=== PATIENT | male | born 1990 | race American Indian/Alaskan Native ===

== ENCOUNTER 2020-02-17 20:27 | Emergency (ER) | payer SELFPAY ==
--- NOTE | 2020-02-17 20:39 | Emergency Department Report ---
Stated Complaint: DISCHARGE Time Seen by Provider: 02/17/20 20:37 - HPI History of Present Illness: PENILE DC HAS SEX WITH MEN AND WOMEN NO TESTICULAR PAIN - ROS Review of Systems: PENILE DC - Exam Physical Exam: AO S1S2 LUNGS CTA ABD SNT NO CVA TENDERNESS MSE screening note: Focused history and physical exam performed. Due to findings the following was ordered: Patient discussed with doctor:: NICOLE JUAREZ ED Disposition for MSE Clinical Impression: Concern about STD in male without diagnosis Disposition: MED SCREENING EXAM-LEFT Is pt being admited?: No Does the pt Need Aspirin: No Condition: Stable Referrals: JOSR ARIZMENDI MD [Staff Physician] - 3-5 Days Time of Disposition: 20:38
[2020-02-17 20:40] VITALS: BP 144/74
== END 2020-02-17 21:00 | disposition left against medical advice (07) ==
LOC: ED 20:27
DX: R36.9 Urethral discharge, unspecified (principal); Z71.1 Person with feared health complaint in whom no diagnosis is made
CPT/HCPCS: 99281

== ENCOUNTER 2021-09-20 14:49 | Emergency (ER) | payer SELFPAY ==
[2021-09-20] MEDS ORDERED: IPRATROPIUM/ALBUTEROL SULFATE 3 ML AMPUL.NEB IH ONE (16:44)
[2021-09-20] MEDS ORDERED: predniSONE 20 MG TAB PO ONE (16:44)
--- NOTE | 2021-09-20 16:48 | Emergency Department Report ---
ED Shortness of Breath HPI - General Chief Complaint: Dyspnea/Respdistress Stated Complaint: ASTHMA Time Seen by Provider: 09/20/21 16:36 Source: patient Mode of arrival: Ambulatory Limitations: No Limitations - History of Present Illness Initial Comments: Patient presents with an asthma exacerbation the cough. Cough is producing yellowish phlegm. Has no fevers associated with this. There has been no hemoptysis. This is triggered his asthma. He is used his inhaler at home without symptomatic improvement. He decided to come here to get relief. He can hear himself wheeze. He states that the wheezing woke him up last night. Patient has had no fevers. He has had no muscle aches or body aches. He has had no known exposure to influenza, coronavirus, or pneumonia. He has never been intubated before because of his asthma. - Related Data Previous Rx's Medication Instructions Recorded Last Taken Type Albuterol Sulfate [Proair 2 puff IH 4XD #1 aer.pw.bas 09/20/21 Unknown Rx Digihaler] predniSONE [Deltasone] 50 mg PO QDAY #5 tab 09/20/21 Unknown Rx Allergies Allergy/AdvReac Type Severity Reaction Status Date / Time No Known Allergies Allergy Verified 09/20/21 15:47 ED Review of Systems ROS: Stated complaint: ASTHMA Other details as noted in HPI Comment: All other systems reviewed and negative Constitutional: denies: fever Eyes: denies: vision change ENT: denies: throat pain Respiratory: see HPI Cardiovascular: denies: chest pain Endocrine: denies: unexplained weight loss Gastrointestinal: denies: abdominal pain Genitourinary: denies: dysuria Musculoskeletal: denies: back pain Skin: denies: rash Neurological: denies: headache Hematological/Lymphatic: denies: easy bruising ED Past Medical Hx - Past Medical History Hx Asthma: Yes - Family History Family history: other (Asthma) - Social History Smoking Status: Current Every Day Smoker (We discussed tobacco cessation. This was done for 3 minutes.) Substance Use Type: Alcohol - Medications Home Medications: Home Medications Medication Instructions Recorded Confirmed Last Taken Type Albuterol Sulfate [Proair 2 puff IH 4XD #1 aer.pw.bas 09/20/21 Unknown Rx Digihaler] predniSONE [Deltasone] 50 mg PO QDAY #5 tab 09/20/21 Unknown Rx ED Physical Exam - General Limitations: No Limitations, Other (Pulse ox noted and normal) General appearance: alert, in distress (Filed) - Head Head exam: Present: atraumatic, normocephalic, normal inspection - Eye Eye exam: Present: normal appearance, EOMI. Absent: scleral icterus - ENT ENT exam: Present: normal exam, normal orophraynx, normal external ear exam - Neck Neck exam: Present: normal inspection. Absent: meningismus - Respiratory Respiratory exam: Present: wheezes (Bilateral). Absent: respiratory distress - Cardiovascular Cardiovascular Exam: Present: regular rate, normal rhythm - GI/Abdominal GI/Abdominal exam: Present: soft. Absent: distended - Extremities Exam Extremities exam: Present: normal capillary refill. Absent: pedal edema - Back Exam Back exam: Absent: CVA tenderness (R), CVA tenderness (L) - Neurological Exam Neurological exam: Present: alert, oriented X3, normal gait. Absent: motor sensory deficit - Psychiatric Psychiatric exam: Present: normal affect, normal mood - Skin Skin exam: Present: warm, dry ED Course Vital Signs 09/20/21 09/20/21 15:41 15:43 Temperature 98.0 F 98.2 F Pulse Rate 78 Respiratory 16 16 Rate Blood Pressure 115/67 116/59 O2 Sat by Pulse 95 Oximetry - Reevaluation(s) Reevaluation #1: 09/20/21 17:01 DuoNeb was given. Old records reviewed. Patient was discharged. ED Medical Decision Making - Medical Decision Making Patient presents with mild asthma exacerbation and upper respiratory infection. This seems to be viral in nature. There is certainly no symptomatology suggestive of acute bacterial illness. He does not have a fever. He does not have adventitial breath sounds suggestive of pneumonia. He has had no known coronavirus exposure. Patient does not have any evidence of respiratory distress at this time. He does not require admission. He was treated empirically for his symptoms and discharged. There is no indication for empiric antibiotic for this viral illness. Critical Care Time: No Critical care attestation.: If time is entered above; I have spent that time in minutes in the direct care of this critically ill patient, excluding procedure time. ED Disposition Clinical Impression: Acute URI, Tobacco abuse Asthma exacerbation Qualifiers: Asthma severity: mild Asthma persistence: intermittent Qualified Code(s): J45.21 - Mild intermittent asthma with (acute) exacerbation Disposition: HOME / SELF CARE / HOMELESS Is pt being admited?: No Condition: Stable Instructions: Asthma, Adult, Viral Respiratory Infection, [id number], How to Use a Dry Powder Inhaler Additional Instructions: PUSH FLUIDS. STOP SMOKING. SEE YOUR DOCTOR OR THE REFERRAL DOCTOR FOR RECHECK. RETURN FOR ANY PROBLEMS. Prescriptions: predniSONE [Deltasone] 50 mg PO QDAY #5 tab Albuterol Sulfate [Proair Digihaler] 2 puff IH 4XD #1 aer.pw.bas Referrals: PRIMARY CAREMD [Referring] - 3-5 Days VIET GREER MD [Staff Physician] - 3-5 Days
[2021-09-20 17:40] VITALS: BP 119/61
== END 2021-09-20 17:50 | disposition home or self-care (01) ==
LOC: ED 14:49
DX: J45.901 Unspecified asthma with (acute) exacerbation (principal); J06.9 Acute upper respiratory infection, unspecified; F17.200 Nicotine dependence, unspecified, uncomplicated
CPT/HCPCS: 99282; J7512